=== PATIENT | female | born 1990 | race Caucasian/White ===

== ENCOUNTER → 2017-10-18 | Emergency (ER) | payer BC, SELFPAY ==
[~2017-10-18] MED LIST: Adacel (T-DAP) 0.5 ML VIAL ONE; Ketorolac Tromethamine 60 MG/2 ML VIAL ONE; Lidocaine 1% 20 ML MDV ONE; Sulfameth/Trimethoprim DS 800-160mg TAB ONE
== END ==
LOC: NAV ERS 20:43
DX: L03.811 Cellulitis of head [any part, except face] (principal)
CPT/HCPCS: 10060; 87070; 87077; 87186; 87205; 90471; 90715; 96372; J1885; J2001